=== PATIENT | female | born 1995 | race African-American/Black ===

== ENCOUNTER 2017-10-08 16:58 | Emergency (ER) | payer OTHER ==
[~2017-10-08] VITALS: Ht 165.1 cm; Wt 49.3 kg
[~2017-10-08 16:58] MED LIST: ALBUTEROL
[2017-10-08 20:10] VITALS: BP 121/69
[2017-10-08] MEDS ORDERED: ALBUTEROL (0.083%) 2.5MG/3ML NEB HHN STA (20:26)
[2017-10-08] MEDS ORDERED: PREDNISONE 20MG TABLET PO STA (20:26)
== END 2017-10-08 21:55 | disposition home or self-care (01) ==
LOC: ER 18:53
DX: H10.30 Unspecified acute conjunctivitis, unspecified eye (principal); J20.9 Acute bronchitis, unspecified; J45.901 Unspecified asthma with (acute) exacerbation; F17.200 Nicotine dependence, unspecified, uncomplicated; Z88.0 Allergy status to penicillin
CPT/HCPCS: 81025; 94640; 99283; J7512; J7611

== ENCOUNTER 2018-04-03 18:25 | Emergency (ER) | payer SELFPAY ==
[~2018-04-03] VITALS: Ht 162.6 cm; Wt 0.5 kg
[2018-04-03] MEDS ORDERED: MORPHINE SULFATE 4 MG/ML CPJ (NOT FOR IM USE) IV STA ×2 (19:01→23:31)
[2018-04-03] MEDS ORDERED: ACETAMINOPHEN 325MG TABLET PO STA (19:01)
[2018-04-03] MEDS ORDERED: ONDANSETRON HCL 4MG/2ML INJ IV STA ×2 (19:01→23:31)
[2018-04-03] MEDS ORDERED: SODIUM CHLORIDE 0.9% 1000ML BAG (SEPSIS BOLUS) IV ONE (19:15)
[2018-04-03 20:34] LABS: BASOPHILS % 0.2 % (0.0-2.0); EOSINOPHILS % 1.1 % (0.0-5.0); HEMATOCRIT. 36.3 % (36.0-48.0); HEMOGLOBIN. 11.8 g/dL (12.0-16.0); LYMPHOCYTES % 9.2 % (20.0-50.0); MEAN CORPUSCULAR HEMOGLOBIN 29.9 pg (28.0-32.0); MEAN PLATELET VOLUME 7.1 fl (7.4-10.4); NEUTROPHILS % 84.5 % (40.0-76.0); PLATELET 412 x1000/uL (130-400); RED BLOOD CELL COUNT 3.94 mill/uL (4.2-5.4); RED CELL DISTRIBUTION WIDTH 13.4 % (11.6-14.6)
[2018-04-03 20:35] LABS: CHLORIDE 104 mEq/L (98-107)
[2018-04-03 20:37] LABS: INR 1.2
[2018-04-03 21:03] LABS: HCG SCREEN NEGATIVE
[2018-04-03] MEDS ORDERED: IOHEXOL-300 100 ML BOTTLE ONE (22:43)
[2018-04-03] MEDS ORDERED: DOXYCYCLINE 100 MG in DEXT 5% WATER 100 ML IV STA (23:19)
[2018-04-03] MEDS ORDERED: METRONIDAZOLE 500 MG PREMIX 100 ML IV ONE (23:30)
[2018-04-03] MEDS ORDERED: GENTAMICIN 80MG PREMIX 100 ML IV ONE (23:45)
[2018-04-03] MEDS ORDERED: CLINDAMYCIN 600 MG in DEXTROSE 5% WATER 50 ML IV ONE (23:45)
[2018-04-03 23:46] LABS: CLARITY URINE CLOUDY (CLEAR); COLOR URINE DARK YELLOW (YELLOW); KETONES URINE 3+ (NEGATIVE); LEUKOCYTE ESTERASE URINE 2+ (NEGATIVE); NITRITE URINE NEGATIVE (NEGATIVE); OCCULT BLOOD URINE TRACE (NEGATIVE); PH URINE 5.5 (4.5-8.0); PROTEIN URINE 1+ (NEGATIVE); SPECIFIC GRAVITY URINE 1.034 (1.005-1.030)
[2018-04-04] MEDS ORDERED: GENTAMICIN 80MG PREMIX 100 ML IV NR ×2 (02:15→16:00)
[2018-04-04] MEDS ORDERED: CLINDAMYCIN 600 MG in SODIUM CHLORIDE 0.9% 50 ML IV NR (02:15)
[2018-04-04] MEDS ORDERED: DOXYCYCLINE 100 MG in DEXT 5% WATER 100 ML IV NR (02:15)
[2018-04-04] MEDS ORDERED: GENTAMICIN 80MG PREMIX 100 ML IV ONE (02:15)
[2018-04-04] MEDS: HYDROCODONE/ACETAMINOPHEN 5/325MG TABLET PO PRN ×4 (06:57→20:37)
[2018-04-04] MEDS ORDERED: ONDANSETRON HCL 4MG/2ML INJ IV PRN (13:15)
[2018-04-04] MEDS ORDERED: CLINDAMYCIN 900 MG in DEXTROSE 5% WATER 50 ML IV NR (16:00)
[2018-04-04] MEDS: IBUPROFEN 800MG TABLET PO PRN (20:37)
[2018-04-05] MEDS: HYDROCODONE/ACETAMINOPHEN 5/325MG TABLET PO PRN (01:47)
[2018-04-05] MEDS ORDERED: GENTAMICIN 80MG PREMIX 100 ML IV NR (02:00)
[2018-04-05] MEDS ORDERED: CLINDAMYCIN 900 MG in DEXTROSE 5% WATER 50 ML IV NR (02:00)
[2018-04-05 05:39] LABS: BASOPHILS % 0.4 % (0.0-2.0); EOSINOPHILS % 7.6 % (0.0-5.0); HEMATOCRIT. 34.2 % (36.0-48.0); HEMOGLOBIN. 11.3 g/dL (12.0-16.0); LYMPHOCYTES % 25.4 % (20.0-50.0); MEAN CORPUSCULAR HEMOGLOBIN 30.5 pg (28.0-32.0); MEAN CORPUSCULAR VOLUME 92.4 fL (81.0-99.0); MEAN PLATELET VOLUME 7.1 fl (7.4-10.4); MONOCYTES % 7.7 % (2.0-8.0); NEUTROPHILS % 58.9 % (40.0-76.0); PLATELET 373 x1000/uL (130-400); RED CELL DISTRIBUTION WIDTH 13.7 % (11.6-14.6)
[2018-04-05 06:00] LABS: CHLORIDE 109 mEq/L (98-107)
[2018-04-05] MEDS: IBUPROFEN 800MG TABLET PO PRN (09:56)
[2018-04-05] MEDS ORDERED: CLINDAMYCIN 900 MG in DEXTROSE 5% WATER 50 ML IV SCH ×4 (10:00)
[2018-04-05 12:19] VITALS: BP 112/72
[2018-04-05] MEDS ORDERED: GENTAMICIN 80MG PREMIX 100 ML IV SCH (16:00)
[2018-04-06 09:06] LABS: CHLAMYDIA TRACHOMATIS NAA Negative (Negative)
[2018-04-06 13:06] LABS: NEISSERIA GONORRHOEAE NAA Positive (Negative)
== END 2018-04-05 12:21 | disposition home or self-care (01) ==
LOC: ER 18:25 → ENRESERV 04-04 00:22 → CANRESERV 04-04 00:22 → CANBEDREQ 04-04 16:55 → ER 04-05 12:21 → CANBEDREQ 04-05 16:17
DX: N39.0 Urinary tract infection, site not specified (principal); N73.9 Female pelvic inflammatory disease, unspecified; R50.9 Fever, unspecified; R10.9 Unspecified abdominal pain; R11.2 Nausea with vomiting, unspecified; J45.909 Unspecified asthma, uncomplicated; Z88.0 Allergy status to penicillin
CPT/HCPCS: 36415; 71045; 74177; 76830; 76856; 80053; 81003; 83605; 84145; 84703; 85025; 85610; 87040; 87086; 87210; 87491; 87591; 93005; 96361; 96365; 96366; 96367; 96368; 96375; 96376; 99285; J1580; J2270; J2405; J3490; J7030; Q9967; J7060

== ENCOUNTER 2019-06-10 09:46 | Emergency (ER) | payer MEDICAID ==
[~2019-06-10] VITALS: Ht 165.1 cm; Wt 59.0 kg
[2019-06-10] MEDS ORDERED: PREDNISONE 20MG TABLET PO ONE (10:45)
[2019-06-10] MEDS ORDERED: KETOROLAC 30MG/ML VIAL IM ONE (10:45)
[2019-06-10] MEDS ORDERED: ALBUTEROL (0.083%) 2.5MG/3ML NEB HHN ONE (10:45)
[2019-06-10] MEDS ORDERED: ALBUTEROL (0.083%) 2.5MG/3ML NEB ONE (11:38)
[2019-06-10 12:24] VITALS: BP 112/78
== END 2019-06-10 12:24 | disposition home or self-care (01) ==
LOC: ER 09:46
DX: J45.909 Unspecified asthma, uncomplicated (principal); F17.290 Nicotine dependence, other tobacco product, uncomplicated; F12.10 Cannabis abuse, uncomplicated; Z88.0 Allergy status to penicillin
CPT/HCPCS: 71045; 81025; 94640; 96372; 99283; J1885; J7512; J7611; Z7610

== ENCOUNTER 2019-07-22 09:24 | Emergency (ER) | payer MEDICAID ==
[~2019-07-22] VITALS: Ht 165.1 cm; Wt 73.0 kg
[2019-07-22] MEDS ORDERED: ONDANSETRON HCL 4MG/2ML INJ IV STA (11:18)
[2019-07-22] MEDS ORDERED: KETOROLAC 30MG/ML VIAL IV STA (11:18)
[2019-07-22 12:28] LABS: CLARITY URINE CLOUDY (CLEAR); COLOR URINE YELLOW (YELLOW); KETONES URINE NEGATIVE (NEGATIVE); LEUKOCYTE ESTERASE URINE 2+ (NEGATIVE); NITRITE URINE NEGATIVE (NEGATIVE); OCCULT BLOOD URINE NEGATIVE (NEGATIVE); PROTEIN URINE NEGATIVE (NEGATIVE); SPECIFIC GRAVITY URINE 1.026 (1.005-1.030); UROBILINOGEN URINE 0.2 E.U./dL (0.2-1.0)
[2019-07-22 12:30] LABS: BASOPHILS % 0.5 % (0.0-2.0); HEMATOCRIT. 38.9 % (36.0-48.0); HEMOGLOBIN. 13.2 g/dL (12.0-16.0); LYMPHOCYTES % 21.3 % (20.0-50.0); MEAN CORPUSCULAR HEMOGLOBIN 33.8 pg (28.0-32.0); MEAN CORPUSCULAR VOLUME 99.6 fL (81.0-99.0); MEAN PLATELET VOLUME 7.6 fl (7.4-10.4); NEUTROPHILS % 62.2 % (40.0-76.0); PLATELET 255 x1000/uL (130-400); RED BLOOD CELL COUNT 3.91 mill/uL (4.2-5.4); RED CELL DISTRIBUTION WIDTH 13.4 % (11.6-14.6)
[2019-07-22 12:37] LABS: INR 1.1
[2019-07-22 12:38] LABS: CHLORIDE 108 mEq/L (98-107)
[2019-07-22 12:50] LABS: HCG SCREEN NEGATIVE
[2019-07-22 14:24] VITALS: BP 95/69
== END 2019-07-22 14:27 | disposition home or self-care (01) ==
LOC: ER 09:24
DX: M25.562 Pain in left knee (principal); N39.0 Urinary tract infection, site not specified; M25.462 Effusion, left knee; F12.10 Cannabis abuse, uncomplicated; J45.909 Unspecified asthma, uncomplicated; Z88.0 Allergy status to penicillin
CPT/HCPCS: 36415; 71045; 73560; 73590; 80053; 81003; 81025; 84703; 85025; 85610; 87086; 93971; 96374; 96375; 99284; J1885; J2405

== ENCOUNTER 2020-04-10 17:28 | Emergency (ER) | payer MEDICAID ==
[~2020-04-10] VITALS: Ht 165.1 cm; Wt 61.0 kg
[2020-04-10] MEDS ORDERED: KETOROLAC 30MG/ML VIAL IM ONE (18:15)
[2020-04-10 18:35] VITALS: BP 118/91
== END 2020-04-10 19:08 | disposition home or self-care (01) ==
LOC: ER 17:28
DX: M54.5 Low back pain (principal); M54.2 Cervicalgia; J45.909 Unspecified asthma, uncomplicated; F12.10 Cannabis abuse, uncomplicated; Z88.0 Allergy status to penicillin; V49.88XA Car occupant (driver) (passenger) injured in other specified transport accidents, initial encounter; Y93.89 Activity, other specified; Y92.89 Other specified places as the place of occurrence of the external cause; Y99.8 Other external cause status
CPT/HCPCS: 71045; 96372; 99283; J1885

== ENCOUNTER 2020-09-20 11:41 | Emergency (ER) | payer MEDICAID ==
[~2020-09-20] VITALS: Ht 162.6 cm; Wt 58.0 kg
[2020-09-20] MEDS ORDERED: KETOROLAC 30MG/ML VIAL IM ONE (12:00)
[2020-09-20] MEDS ORDERED: ACETAMINOPHEN 325MG TABLET PO ONE (12:30)
[2020-09-20 12:32] LABS: CLARITY URINE CLOUDY (CLEAR); COLOR URINE DARK YELLOW (YELLOW); KETONES URINE 1+ (NEGATIVE); LEUKOCYTE ESTERASE URINE TRACE (NEGATIVE); NITRITE URINE NEGATIVE (NEGATIVE); OCCULT BLOOD URINE NEGATIVE (NEGATIVE); PH URINE 5.5 (4.5-8.0); PROTEIN URINE TRACE (NEGATIVE); SPECIFIC GRAVITY URINE 1.032 (1.005-1.030)
[2020-09-20] MEDS ORDERED: AZIT500T8 MT (14:49)
[2020-09-20] MEDS ORDERED: PREN-176 MT (14:49)
[2020-09-20] MEDS ORDERED: TOPUD MT (14:49)
[2020-09-20 15:00] VITALS: BP 122/79
== END 2020-09-20 15:14 | disposition home or self-care (01) ==
LOC: ER 11:41
DX: O26.891 Other specified pregnancy related conditions, first trimester (principal); M54.5 Low back pain; J02.9 Acute pharyngitis, unspecified; G89.29 Other chronic pain; J45.909 Unspecified asthma, uncomplicated; Z3A.01 Less than 8 weeks gestation of pregnancy; Z88.3 Allergy status to other anti-infective agents; Z88.0 Allergy status to penicillin
CPT/HCPCS: 36415; 76801; 81003; 81025; 84702; 99284

== ENCOUNTER 2022-01-29 20:40 | Emergency (ER) | payer MEDICAID ==
[~2022-01-29] VITALS: Ht 170.2 cm; Wt 59.7 kg
[~2022-01-29 20:40] MED LIST changes: +AZIT500T8 MT; +PREN-176 MT; +TOPUD MT
[2022-01-29] MEDS ORDERED: DOXY100T28 PO (23:12)
[2022-01-29] MEDS ORDERED: DIPH25TA62 PO (23:12)
[2022-01-29] MEDS ORDERED: HYDR453.3 TP (23:12)
[2022-01-29] MEDS ORDERED: ACET-2708 PO (23:12)
[2022-01-29] MEDS ORDERED: METHYLPREDNISOLONE SOD SUCC 125 MG/2 ML VIAL IM STA (23:33)
[2022-01-30 00:03] VITALS: BP 101/59
== END 2022-01-30 00:03 | disposition home or self-care (01) ==
LOC: ER 20:40
DX: S40.862A Insect bite (nonvenomous) of left upper arm, initial encounter (principal); J45.909 Unspecified asthma, uncomplicated; W57.XXXA Bitten or stung by nonvenomous insect and other nonvenomous arthropods, initial encounter; Y93.9 Activity, unspecified; Y92.9 Unspecified place or not applicable; Z88.0 Allergy status to penicillin; Z88.3 Allergy status to other anti-infective agents
CPT/HCPCS: 96372; 99283; J2930

== ENCOUNTER 2022-06-26 22:15 | Emergency (ER) | payer MEDICAID ==
[~2022-06-26] VITALS: Ht 165.1 cm; Wt 62.2 kg
[~2022-06-26 22:15] MED LIST changes: +ACET-2708 PO; +DIPH25TA62 PO; +DOXY100T28 PO; +HYDR453.3 TP
[2022-06-26 22:19] VITALS: BP 137/81
[2022-06-26 23:18] LABS: BASOPHILS % 0.6 % (0.0-2.0); EOSINOPHILS % 3.9 % (0.0-5.0); HEMATOCRIT. 37.7 % (36.0-48.0); HEMOGLOBIN. 12.9 g/dL (12.0-16.0); LYMPHOCYTES % 31.4 % (20.0-50.0); MEAN CORPUSCULAR HEMOGLOBIN 33.9 pg (28.0-32.0); MEAN CORPUSCULAR VOLUME 98.9 fL (81.0-99.0); MEAN PLATELET VOLUME 7.4 fl (7.4-10.4); MONOCYTES % 5.1 % (2.0-8.0); PLATELET 270 x1000/uL (130-400); RED BLOOD CELL COUNT 3.81 mill/uL (4.2-5.4); RED CELL DISTRIBUTION WIDTH 13.3 % (11.6-14.6)
[2022-06-26 23:37] LABS: CHLORIDE 104 mEq/L (98-107)
[2022-06-26 23:49] LABS: B-HCG QUANTITATIVE < 1 mIU/mL (<3)
[2022-06-26 23:50] LABS: HCG SCREEN NEGATIVE
[2022-06-27] MEDS ORDERED: LEVO-65 MT (01:16)
[2022-06-27] MEDS ORDERED: METR-167 MT (01:16)
[2022-06-27] MEDS: POTASSIUM CHLORIDE 20MEQ TABLET SR PO ONE (01:39)
[2022-06-27 01:57] LABS: CLARITY URINE CLEAR (CLEAR); COLOR URINE DARK YELLOW (YELLOW); KETONES URINE 1+ (NEGATIVE); LEUKOCYTE ESTERASE URINE TRACE (NEGATIVE); NITRITE URINE NEGATIVE (NEGATIVE); OCCULT BLOOD URINE 3+ (NEGATIVE); PH URINE 5.5 (4.5-8.0); PROTEIN URINE 1+ (NEGATIVE); SPECIFIC GRAVITY URINE 1.037 (1.005-1.030)
[2022-06-27] MEDS ORDERED: KETOROLAC 60MG/2ML VIAL IM ONE (02:15)
[2022-06-29 06:11] LABS: NEISSERIA GONORRHOEAE NAA Negative (Negative)
== END 2022-06-27 02:20 | disposition home or self-care (01) ==
LOC: ER 22:23
DX: N73.0 Acute parametritis and pelvic cellulitis (principal); N93.8 Other specified abnormal uterine and vaginal bleeding; J45.909 Unspecified asthma, uncomplicated; F12.10 Cannabis abuse, uncomplicated; Z79.899 Other long term (current) drug therapy; Z88.0 Allergy status to penicillin
CPT/HCPCS: 36415; 76830; 76856; 80053; 81003; 81025; 84702; 84703; 85025; 86850; 86900; 86901; 87210; 87491; 87591; 99284; J1885

== ENCOUNTER 2022-11-05 09:02 | Emergency (ER) | payer MEDICAID ==
[~2022-11-05] VITALS: Ht 165.1 cm; Wt 61.0 kg
[~2022-11-05 09:02] MED LIST changes: +LEVO-65 MT; +METR-167 MT
[2022-11-05 09:10] VITALS: BP 126/74
[2022-11-05 09:43] LABS: BASOPHILS % 0.4 % (0.0-2.0); EOSINOPHILS % 3.7 % (0.0-5.0); HEMATOCRIT. 38.4 % (36.0-48.0); HEMOGLOBIN. 13.1 g/dL (12.0-16.0); LYMPHOCYTES % 16.5 % (20.0-50.0); MEAN CORPUSCULAR HEMOGLOBIN 33.8 pg (28.0-32.0); MEAN CORPUSCULAR VOLUME 99.5 fL (81.0-99.0); MEAN PLATELET VOLUME 7.3 fl (7.4-10.4); MONOCYTES % 4.4 % (2.0-8.0); PLATELET 291 x1000/uL (130-400); RED BLOOD CELL COUNT 3.86 mill/uL (4.2-5.4); RED CELL DISTRIBUTION WIDTH 12.6 % (11.6-14.6)
[2022-11-05 10:00] LABS: CHLORIDE 108 mEq/L (98-107)
[2022-11-05 10:20] LABS: B-HCG QUANTITATIVE 5890 mIU/mL (<3)
[2022-11-05 11:48] LABS: CLARITY URINE CLOUDY (CLEAR); COLOR URINE YELLOW (YELLOW); KETONES URINE 4+ (NEGATIVE); LEUKOCYTE ESTERASE URINE NEGATIVE (NEGATIVE); NITRITE URINE NEGATIVE (NEGATIVE); OCCULT BLOOD URINE NEGATIVE (NEGATIVE); PH URINE 5.5 (4.5-8.0); PROTEIN URINE TRACE (NEGATIVE); SPECIFIC GRAVITY URINE 1.027 (1.005-1.030); UROBILINOGEN URINE 0.2 E.U./dL (0.2-1.0)
[2022-11-05] MEDS ORDERED: TOPUD PO (11:59)
== END 2022-11-05 12:35 | disposition home or self-care (01) ==
LOC: ER 09:15
DX: O20.0 Threatened abortion (principal); J45.909 Unspecified asthma, uncomplicated; Z88.0 Allergy status to penicillin; Z79.899 Other long term (current) drug therapy; Z98.890 Other specified postprocedural states; Z3A.01 Less than 8 weeks gestation of pregnancy
CPT/HCPCS: 36415; 76801; 80053; 81003; 81025; 84702; 85025; 86850; 86900; 99284

== ENCOUNTER 2023-04-07 08:50 | Observation (INO) | payer MEDICAID, OTHER ==
[~2023-04-07] VITALS: Ht 165.1 cm; Wt 73.9 kg
[~2023-04-07 08:50] MED LIST changes: +TOPUD PO
[2023-04-07] MEDS ORDERED: LACTATED RINGERS 1,000 ML IV SCH (09:30)
[2023-04-07] MEDS ORDERED: DEXT 5%/LACTATED RINGERS 1,000 ML IV SCH (09:30)
[2023-04-07] MEDS ORDERED: ONDANSETRON HCL 4MG/2ML INJ IV NR (09:45)
[2023-04-07 10:00] LABS: CHLORIDE 109 mEq/L (98-107); INDEX HEMOLYSI 1 (1-3); INDEX ICTERIC 1 (1-4); INDEX LIPEMIC 1 (1-3); POTASSIUM 3.6 mEq/L (3.5-5.1); SODIUM 140 mEq/L (136-145)
[2023-04-07 10:02] LABS: BASOPHILS % 0.3 % (0.0-2.0); EOSINOPHILS % 2.6 % (0.0-5.0); HEMATOCRIT. 32.6 % (36.0-48.0); HEMOGLOBIN. 11.1 g/dL (12.0-16.0); LYMPHOCYTES % 16.7 % (20.0-50.0); MEAN CORPUSCULAR HEMOGLOBIN 33.7 pg (28.0-32.0); MEAN CORPUSCULAR HGB CONC 34.2 g/dL (31.0-37.0); MEAN CORPUSCULAR VOLUME 98.7 fL (81.0-99.0); MEAN PLATELET VOLUME 7.8 fl (7.4-10.4); MONOCYTES % 4.7 % (2.0-8.0); NEUTROPHILS % 75.7 % (40.0-76.0); PLATELET 300 x1000/uL (130-400); RED CELL DISTRIBUTION WIDTH 12.8 % (11.6-14.6); WHITE BLOOD COUNT 12.7 x1000/uL (4.5-11.0)
[2023-04-07 10:04] LABS: CLARITY URINE CLOUDY (CLEAR); COLOR URINE YELLOW (YELLOW); GLUCOSE URINE NEGATIVE (NEGATIVE); KETONES URINE NEGATIVE (NEGATIVE); LEUKOCYTE ESTERASE URINE 2+ (NEGATIVE); NITRITE URINE NEGATIVE (NEGATIVE); OCCULT BLOOD URINE NEGATIVE (NEGATIVE); PH URINE 6.5 (4.5-8.0); PROTEIN URINE TRACE (NEGATIVE); SPECIFIC GRAVITY URINE 1.027 (1.005-1.030)
[2023-04-07 10:09] LABS: ALANINE AMINOTRANSFERASE 26 IU/L (13-61); ALBUMIN 2.9 g/dL (3.4-5.0); ASPARTATE AMINOTRANSFERASE 20 IU/L (15-37); BILIRUBIN TOTAL 0.6 mg/dL (0.1-1.0); CARBON DIOXIDE 27 mEq/L (21-32); CREATININE 0.7 mg/dL (0.6-1.3); GLUCOSE 77 mg/dL (70-105); PROTEIN TOTAL 6.4 g/dL (6.0-8.3); UREA NITROGEN BLOOD 8 mg/dL (7-21)
[2023-04-07 10:14] LABS: D-DIMER 0.57 mg/L FEU (<0.50); PARTIAL THROMBOPLASTIN TIME 26.5 sec (23.4-31.0); PROTHROMBIN TIME 10.3 sec (9.6-11.0)
[2023-04-07 10:18] LABS: AMORPHOUS SEDIMENT URINE 1+ /lpf; SQUAMOUS EPITHELIAL CELL URINE 2+ /lpf (RARE/1+)
[2023-04-07 10:19] LABS: BACTERIA URINE 2+
[2023-04-07 10:23] LABS: RBC URINE 0-2 /hpf (0-2)
[2023-04-07] MEDS ORDERED: ACETAMINOPHEN 500MG TABLET PO NR (10:30)
== END 2023-04-07 10:45 | disposition home or self-care (01) ==
LOC: 8 EST LDRP 08:50
PROVIDERS: ADMIT Obstetrics & Gynecology; ATTEND Obstetrics & Gynecology
DX: O26.893 Other specified pregnancy related conditions, third trimester (principal); R10.9 Unspecified abdominal pain; R51.9 Headache, unspecified; N89.8 Other specified noninflammatory disorders of vagina; Z3A.28 28 weeks gestation of pregnancy
CPT/HCPCS: 80053; 81003; 84550; 85025; 85379; 85384; 85610; 85730; 36415; 76705; 76815; 76805; 96374; 59025; J2405; G0378 ×2; G0379